=== PATIENT | male | born 1965 | race Caucasian/White ===

== ENCOUNTER 2018-02-19 14:25 | Inpatient (IN) | payer OTHER ==
[~2018-02-19] VITALS: Ht 166.4 cm; Wt 55.1 kg
[2018-02-19 16:15] VITALS: BP 129/73
--- NOTE | 2018-02-19 16:41 | ED GENERAL ADULT ---
History of Present Illness General Chief Complaint: Psychiatric Related Complaint Stated Complaint: PSYCH EVAL Source: patient, family Exam Limitations: no limitations Vital Signs & Intake/Output Vital Signs & Intake/Output Vital Signs Date Time Temp Pulse Resp B/P B/P Pulse O2 O2 Flow FiO2 Mean Ox Delivery Rate 06 1104 97.8 86 18 137/88 06/05 1048 97.8 86 20 137/78 92 Room Air 06/05 0950 97.0 73 20 119/77 98 Room Air 06/05 0801 99.1 56 18 127/73 06/05 0751 99.1 56 18 127/73 98 Room Air 06/05 0600 97.8 60 18 138/73 06/05 0553 97.8 60 18 138/73 99 Room Air 06/04 2215 98.9 61 20 116/72 06/04 2128 98.9 61 20 116/72 94 Room Air 06/04 1934 97.7 78 18 134/82 06/04 1933 97.7 78 18 134/82 96 Room Air 06/04 1744 97.3 82 16 132/77 06/04 1743 97.3 82 16 132/77 97 Room Air 06/04 1615 96.7 77 18 129/73 06/04 1615 96.7 77 18 129/73 95 Room Air 06/04 1512 97.1 80 18 157/87 97 Room Air ED Intake and Output 06/05 0000 06/04 1200 Intake Total 0 Output Total Balance 0 Intake, Oral 0 Patient 130 lb Weight Allergies Coded Allergies: Sulfa (Sulfonamide Antibiotics) (Intermediate, RASH 02/19/18) Triage Note: 52 YEAR OLD MALE TO ER VIA AMBULANCE ON [facility] DUE TO POSITIVE SI COMMENTS. PT STATES THAT HE CALLED THE [facility]IC[facility] AND STATED THAT HE NO LONGER WANTED TO LIVE AND THEY CALLED THE POLICE. PT CALM AND COPERATIVE AND STATES THAT HE HAS BEEN VERY DEPRESSED OVER THE PAST COUPLE OF MONTHS SINCE HE LOST HIS JOB. PT LIVES WITH HIS KING AND HER 3 SONS. PT ADMITS TO BEING A DAILY DRINKER AND LAST DRINK WAS THIS AM. (WINE) DENIES HISTORY OF WITHDRAWAL SEIZURES AND STATES THAT HE ONLY GETS SHAKEY. DENIES DRUG USE/ PT HAS NEVER BEEN ADMITTED FOR DETOX OR DEPRESSION. Triage Nurses Notes Reviewed? yes HPI: 52 yo M PMH EtOH abuse presenting with depression, SI. Patient endorses 2-3 weeks of progressive depressed mood, anhedonia, feelings of guilt and worthlessness, increased life stressors (recently lost job 2 weeks ago). Associated suicidal ideation without specific plan, "I guess I'd overdose on pills, I just want to go to sleep and never wake up." Patient called at suicide support hotline this afternoon, PD sent to patients house to transport him to the ED. Patient endorses daily heavy EtOH use since 06/2017 ("wine mostly", somtimes beer or hard liquor), no prior Hx of withdrawal seizures. ROS (+) for intermittent nausea without emesis, some tremors with cessation of EtOH use. Denies associated fevers, chills, chest pain, SOB, palpitations, emesis, diarrhea, bloody stools, urinary Sx, headache, neck pain or focal neurologic Sx. (Fernando Morejon MD) Reconcile Medications Pantoprazole Sodium 40 MG TABLET. 1 TAB PO BID GI (Reported) (Crow Escalante DO) Past History Travel History Traveled to [place] past 21 day No Medical History Any Pertinent Medical History? 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 Yes (Fernando Morejon MD) Review of Systems Review of Systems Constitutional: Reports: no symptoms. EENTM: Reports: no symptoms. Respiratory: Reports: no symptoms. Cardiovascular: Reports: no symptoms. GI: Reports: see HPI. Genitourinary: Reports: no symptoms. Musculoskeletal: Reports: no symptoms. Skin: Reports: no symptoms. Neurological/Psychological: Reports: see HPI. Hematologic/Endocrine: Reports: no symptoms. Immunologic/Allergic: Reports: no symptoms. All Other Systems: Reviewed and Negative (Fernando Morejon MD) Physical Exam Physical Exam General Appearance: well developed/nourished, no apparent distress, alert, awake Head: atraumatic Eyes: Bilateral: PERRL, EOMI. Neck: normal inspection, full range of motion, no midline tenderness Respiratory: normal breath sounds, lungs clear Cardiovascular: regular rate/rhythm, normal peripheral pulses Gastrointestinal: soft, non-tender Core Measures ACS in differential dx? No CVA/TIA Diagnosis: No Sepsis Present: No Sepsis Focused Exam Completed? No (Jean-Pierre CLARK,Fernando) Progress Differential Diagnoses I considered the following diagnoses in my evaluation of the patient: [ Psychiatric pathology, intoxication, low concern for infectious or metabolic precipitants] Plan of Care: Orders Procedure Date/time Status Regular Diet 02/20 B Active Admit to inpatient psych 02/20 1219 Active Continuous Observation Monitor 02/20 0002 Active Add-on Test (ER Only) 02/19 2002 Active Pathway - chart 02/19 172 Active CIWA 02/19 1727 Active THYROID STIMULATING HORMONE 02/19 1629 Complete LIPASE 02/19 1629 Complete HEPATIC FUNCTION PANEL 02/19 1629 Complete ETHANOL 02/19 1555 Complete CBC WITHOUT DIFFERENTIAL 02/19 1555 Complete BASIC METABOLIC PANEL 02/19 1555 Complete EKG 02/19 1555 Active ED CRISIS PSYCH CONSULT 02/19 1555 Active URINE DRUGS OF ABUSE 02/19 1523 Complete Current Medications Sig/Dinesh Start time Last Medication Dose Stop Time Status Admin Lorazepam 2 MG Q2P PRN 02/19 1730 UNVr (Ativan) Lorazepam 1 MG Q2P PRN 02/19 1730 UNVr (Ativan) Thiamine HCl 100 MG DAILY 02/19 1730 UNVr 02/19 (Vitamin B1) 1739 Laboratory Tests 02/19/18 1629: Anion Gap 19 H, Estimated GFR > 60, BUN/Creatinine Ratio 15.7, Glucose 191 H, Calcium 9.0, Total Bilirubin 0.6, Direct Bilirubin 0.3, AST 279 H, ALT 120 H, Alkaline Phosphatase 142 H, Total Protein 7.6, Albumin 4.5, Lipase 327 H, TSH 0.718, CBC w Diff NO MAN DIFF REQ, RBC 4.60 L, MCV 105.6 H, MCH 36.0 H, MCHC 34.2, RDW 14.7 H, MPV 8.1, Gran % 78.8 H, Lymphocytes % 13.2 L, Monocytes % 7.7, Eosinophils % 0.1, Basophils % 0.2, Absolute Granulocytes 5.9, Absolute Lymphocytes 1.0 L, Absolute Monocytes 0.6, Absolute Eosinophils 0, Absolute Basophils 0, Serum Alcohol 322.0 02/19/18 1556: TSH Cancelled 02/19/18 1527: Urine Opiates Screen < 100, Methadone Screen < 40, Barbiturate Screen < 60, Ur Phencyclidine Scrn < 6.00, Amphetamines Screen 240, U Benzodiazepines Scrn < 85, Urine Cocaine Screen < 50, Urine Cannabis Screen < 5.00 Physician MDM: 52 yo M PMH EtOH abuse presenting with depression, SI. VSS, exam as above. DDx: Psychiatric pathology, intoxication, low concern for infectious or metabolic precipitants. CBC reflective of chronic EtOH use with low platelets and high MCV. BMp unremarkable. EtOH 322. Thiamine/folate ordered. Medically cleared for ED crisis evaluation. Plan to monitor for sobriety overnight on CIWA scale with PRN PO ativan, re-evaluate tomorrow, probable admission for depression with SI. Initial ED EKG: NSR (Jean-Pierre CLARK,Fernando) Hand-Off Endorsed To: Crow Escalante DO Endorsed Time: 0700 Pending: consult (Dmitriy CLARK,Mario Mckeon) Comments: Attending addendum@12:19 PM on 02/20/[address] Escalante: I assumed care from Dr. Mullins at the time of shift change while awaiting crisis evaluation. The patient had a CIWA score of 8 so I administered lorazepam 2 mg orally which improved his CIWA to 4. Crisis team performed their evaluation and recommended admission to the psychiatric service. Patient was hospitalized in stable condition to psych. (Crow Escalante DO) Departure Departure Disposition: STILL A PATIENT Condition: Stable Clinical Impression Primary Impression: Suicidal ideation Secondary Impressions: Alcohol intoxication Referrals: Zeeshan CLARK,Thierno Vallejo (PCP/Family) Departure Forms: Customer Survey General Discharge Information (Fernando Morejon MD) Resident Co-Sign Statement Statement: ED Attending supervision documentation- [X] I saw and evaluated the patient. I have also reviewed all the pertinent lab results and diagnostic results. I agree with the findings and the plan of care as documented in the Resident's documentation. [X] I have reviewed the ED Record and agree with the Resident's documentation. [] Additions or exceptions (if any) to the Resident's note and plan are summarized below: [] (Dmitriy CLARK,Mario Mckeon) Departure Time of Disposition: 1220 Psych Admission Note Psychiatric Admission: x I have seen and evaluated RENETTA AMBROSIO. I have also reviewed all the pertinent lab results and diagnostic results. RENETTA AMBROSIO will be admitted to our inpatient Psychiatric unit for treatment and care. (Crow Escalante DO) Critical Care Note Critical Care Note Critical Care Time: non-applicable (Jean-Pierre CLARK,Fernando)
[2018-02-19 16:42] LABS: ABSOLUTE BASOPHIL COUNT 0 /CUMM (0.0-0.2); ABSOLUTE EOSINOPHIL COUNT 0 /CUMM (0.0-0.7); ABSOLUTE GRANULOCYTE CT 5.9 /CUMM (1.4-6.5); ABSOLUTE MONOCYTE COUNT 0.6 /CUMM (0.10-0.60); BASOPHIL % 0.2 % (0.0-2.0); EOSINOPHIL % 0.1 % (0-5); GRANULOCYTE % 78.8 % (42.2-75.2); HEMATOCRIT 48.5 % (42-52); MEAN CORPUSCULAR HGB CONC 34.2 G/DL (33.0-37.0); MEAN CORPUSCULAR VOLUME 105.6 FL (80.0-94.0); MEAN PLATELET VOLUME 8.1 FL (7.4-10.4); PLATELET COUNT 110 /CUMM (130-400); RBC DISTRIBUTION WIDTH 14.7 % (11.5-14.5); WHITE BLOOD CELL COUNT 7.5 /CUMM (4.8-10.8)
[2018-02-19 17:44] VITALS: BP 132/77
[2018-02-19 19:34] VITALS: BP 134/82
[2018-02-19 22:15] VITALS: BP 116/72
[2018-02-20] VITALS (12 sets, daily range): BP systolic 126–144; BP diastolic 71–88
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
[2018-02-20] MEDS ORDERED: PANTOPRAZOLE SO40 M1 PO (12:01)
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
--- NOTE | 2018-02-20 22:49 | History & Physical ---
General Information and HPI MD Statement: I have seen and personally examined RENETTA AMBROSIO and documented this H&P. The patient is a 52 year old M who presented with a patient stated chief complaint of [depression, SI]. Source of Information: patient Exam Limitations: no limitations History of Present Illness: 52 yo M smoker, with h/o GERD, anxiety, depression, alcohol dependence, is admitted to Inpatient Psychiatry for worsening depression and suicidal ideation. Please refer to Psych H and P for full details. Patient also binges on alcohol 1L of wine or vodka daily, with no prior h/o withdrawal seizures or DT's. He is being admitted for detox as well. 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 He was evaluated by [facility]ical Equipment [facility], had an echo that was normal. He also underwent a treadmill stress test post discharge which was normal. He is to follow Cardiology every year. 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 He denies h/o CAD, Afib or valvular disorders. He currently denies chest pain, palpitations or dyspnea. He does experience these symptoms during a panic attack. He reports nausea but no vomiting, abdominal pain. Reports nonbloody diarrhea for past 2 days, denies recent antibiotic use. No urinary symptoms, fever or chills. Last EGD/ colonoscopy (Oct 2017): shows no significant esophageal inflammation, focal esophageal diverticulum and normal colonoscopy. Allergies/Medications Allergies: Coded Allergies: Sulfa (Sulfonamide Antibiotics) (Intermediate, RASH 02/19/18) Home Med list Pantoprazole Sodium 40 MG TABLET. 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 Home Who Do You Live With? self Services at Home: None Primary Language: Faroese Smoking Status: Current Everyday Smoker ETOH Use: alcoholic Illicit Drug Use: denies illicit drug use Functional Ability ADLs Independent: dressing, toileting, bathing. Ambulation: independent IADLs Independent: telephone, transportation. Review of Systems Review of Systems Constitutional: Denies: chills, fever, weakness. EENTM: Reports: no symptoms. Cardiovascular: Denies: chest pain, palpitations, syncope. Respiratory: Denies: cough, orthopnea, short of breath, wheezing. GI: Reports: diarrhea, nausea. Denies: abdominal pain, vomiting. Genitourinary: Reports: no symptoms. Musculoskeletal: Reports: no symptoms. Neurological/Psychological: Reports: see HPI. All Other Systems: Reviewed and Negative Date of Last Colonoscopy: 10/30/17 Exam & Diagnostic Data Last 24 Hrs of Vital Signs/I&O Vital Signs Date Time Temp Pulse Resp B/P B/P Pulse O2 O2 Flow FiO2 Mean Ox Delivery Rate 02/20 2220 97.6 72 142/81 06/05 202 97.7 73 142/86 / 2019 97.7 73 142/86 06/05 1817 77 131/71 06/05 1610 71 126/78 06/05 1603 71 126/78 06/05 1553 71 126/78 06/05 1325 98.8 71 144/75 06/05 1324 98.8 71 144/75 06/05 1227 97.5 82 20 139/93 98 Room Air 06/05 1104 97.8 86 18 137/88 06/05 1048 97.8 86 20 137/78 92 Room Air 06/05 0950 97.0 73 20 119/77 98 Room Air 06/05 0801 99.1 56 18 127/73 06/05 0751 99.1 56 18 127/73 98 Room Air 06/05 0600 97.8 60 18 138/73 06/05 0553 97.8 60 18 138/73 99 Room Air Intake & Output 06/06 0800 06/06 0000 06/05 1600 Intake Total Output Total Balance Patient 121 lb Weight Physical Exam General Appearance Alert, Oriented X3, Cooperative, No Acute Distress, Tremulous Skin No Rashes, No Breakdown, No Significant Lesion HEENT Atraumatic, PERRLA, EOMI Neck Supple Cardiovascular Regular Rate, Normal S1, Normal S2, No Murmurs Lungs Clear to Auscultation, Normal Air Movement Abdomen Normal Bowel Sounds, Soft, No Tenderness Neurological Exam Findings: Normal Gait, Normal Speech, Strength at 5/5 X4 Ext, Normal Tone, Sensation Intact, Cranial Nerves 3-12 NL Cranial Nerves II through XII: Intact Extremities No Edema, Normal Pulses, No Tenderness/Swelling Last 24 Hrs of Labs/Kg: Laboratory Tests 02/19/18 1629: Anion Gap 19 H, Estimated GFR > 60, BUN/Creatinine Ratio 15.7, Glucose 191 H, Calcium 9.0, Total Bilirubin 0.6, Direct Bilirubin 0.3, AST 279 H, ALT 120 H, Alkaline Phosphatase 142 H, Total Protein 7.6, Albumin 4.5, Lipase 327 H, TSH 0.718, CBC w Diff NO MAN DIFF REQ, RBC 4.60 L, MCV 105.6 H, MCH 36.0 H, MCHC 34.2, RDW 14.7 H, MPV 8.1, Gran % 78.8 H, Lymphocytes % 13.2 L, Monocytes % 7.7, Eosinophils % 0.1, Basophils % 0.2, Absolute Granulocytes 5.9, Absolute Lymphocytes 1.0 L, Absolute Monocytes 0.6, Absolute Eosinophils 0, Absolute Basophils 0, Hepatitis A IgM Ab Pending, Hep Bs Antigen Pending, Hep B Core IgM Ab Conf Pending, Hepatitis C Antibody Pending, Serum Alcohol 322.0 02/19/18 1556: TSH Cancelled 02/19/18 1527: Urine Opiates Screen < 100, Methadone Screen < 40, Barbiturate Screen < 60, Ur Phencyclidine Scrn < 6.00, Amphetamines Screen 240, U Benzodiazepines Scrn < 85, Urine Cocaine Screen < 50, Urine Cannabis Screen < 5.00 Diagnostic Data EKG Results Initial ER EKG (02/19): sinus rhythm, poor R wave progression, no acute changes. Repeat EKG (02/20) reported as Afib, although there is baseline artifact. Repeat EKG (02/20): sinus rhythm with PACs or sinus arrhythmia. CXR Results -- Assessment/Plan Assessment: 52 yo M smoker, with h/o GERD, anxiety, depression, alcohol dependence, previous Type 2 AK in the setting of pneumonia, is admitted to Inpatient Psychiatry for worsening depression, SI and alcohol detox. - Plan to continue management of depression/ alcohol detox per Psych team. - GERD - continue protonix 40 mg BID - Diarrhea - if persistent over 3 days, will check stool studies - Transaminitis related to alcohol use. AST:ALT ratio is suggestive of alcohol induced liver disease. Will check hepatitis panel, tylenol levels and obtain RUQ ultrasound in AM. - Thrombocytopenia and macrocytosis related to marrow toxicity. Check PT/INR, peripheral smear, TSH, B12 and folic acid. - Hyperglycemia, not a known diabetic. Will check HbA1c and lipid panel. - Smoking cessation counseling, nicotine patch. DVT ppx - low risk, early ambulation. As Ranked By This Provider Problem List: 1. Suicidal ideation 2. Alcohol intoxication Miscellaneous Miscellaneous Documentation Attending Case Discussed With: Radha Mars MD Primary Care Physician: Zeeshan CLARK,Thierno Vallejo Patient sees these Specialists -- Level of Patient Care: YONY Camargo Attending Review Statement Attending Statement Attending MD Statement: examined this patient, discuss w/resident/PA/SLITTER PROCESSED FILM
--- NOTE | 2018-02-20 23:41 | Admission Certification ---
Admission Certification Certification Statement - As attending physician, I certify that at the time of - admission, based on clinical presentation, severity of - symptoms, need for further diagnostic testing and - therapeutic interventions, and risk of adverse outcomes - without in-hospital treatment, in my clinical assessment, - this patient requires an acute hospital stay for a minimum - of two nights or longer. I have also considered psychsocial - factors such as support system, advanced age, financial - issues, cognitive issues, and failed out-patient treatments, - past re-admission history, safety of patient, and lack of - compliance as applicable. Specific rationale supporting this admission is: Alcohol withdrawal, depression and suicidal ideation.
[2018-02-21] VITALS (10 sets, daily range): BP systolic 114–149; BP diastolic 56–91
[2018-02-21 06:48] LABS: PT 10.7 SEC (9.4-12.5)
--- NOTE | 2018-02-21 13:09 | CPS PROVIDER INIT ASMT PSYCH ---
Psychiatric Admission Die Maker's Note Reviewed: Yes Patient Seen and Examined: Yes Identifying Information: Patient is a 52-year-old white male Chief Complaint: Patient reported that he called the suicide hotline while he was talking with somebody on the hotline and the police showed up at the house. Reaction to Hospitalization: The patient was admitted voluntarily. History of Present Illness Onset of Illness: The patient reported that about 3 or 4 weeks ago he intended to get help for his drinking and went to [facility] emergency department in [place] and that he was told that they do not do detoxification there and was sent home from there. He resumed drinking heavily and he really presented to our emergency room after he called the suicide hotline talking about suicide. Circumstances Leading to Admission: Thoughts of suicide and calling the suicide hotline which ended up calling 911 to bring him to the hospital Problem(s) Justifying Need for Admission: Thoughts of suicide and severe depression and severe drinking Past Psychiatric History Past Diagnosis(es)- if any: This is his first inpatient psychiatric admission. He has no known psychiatric diagnoses but he did struggle with alcohol use disorder Past Precipitating Factors- if any: Drinking - Include inpatient and outpatient treatment Treatment History: The patient had no formal psychiatric treatment He reported that he did attempt to seek treatment for his alcoholism and detoxification about 3 or [address] [facility] but he was sent home from the emergency room History of Suicide Attempts or Gestures The patient denied any history of actual suicide attempts in the past. Substance Abuse History: Alcohol use disorder Allergies: Coded Allergies: Sulfa (Sulfonamide Antibiotics) (Intermediate, RASH 02/19/18) Home Med List: The patient was not on psychotropic medications at home. - Include any medical condition(s) that may - impact the patient's recovery/remission Past Medical History: The patient denied any major medical issues. Past History Medical History Neurological: NONE EENT: NONE Cardiovascular: NONE Respiratory: NONE Gastrointestinal: GERD Hepatic: NONE Renal: NONE Musculoskeletal: NONE Psychiatric: alcohol dependence, anxiety, depression Endocrine: NONE Blood Disorders: NONE Cancer(s): NONE CLIENT TECHNICAL SPECIALIST/Reproductive: NONE Isolation History: Standard Surgical History Surgical History: not explored Psychiatric Family/Social Hx Family History Psychiatric Illness: Patient does not believe there is psychiatric illness in the family. Substance Use: Please see the biopsychosocial assessment by [facility] Suicides: Please see the biopsychosocial assessment by CERTIFIED TEACHER ASSISTANT Other Family History: Please see the biopsychosocial assessment by CERTIFIED TEACHER ASSISTANT Social History Living Situation: Please see the biopsychosocial assessment by CERTIFIED TEACHER ASSISTANT Significant Relationships (family/friends): Please see the biopsychosocial assessment by CERTIFIED TEACHER ASSISTANT Education: Please see the biopsychosocial assessment by CERTIFIED TEACHER ASSISTANT Vocation/Occupation: Please see the biopsychosocial assessment by CERTIFIED TEACHER ASSISTANT Legal: Please see the biopsychosocial assessment by CERTIFIED TEACHER ASSISTANT Other Social History: Please see the biopsychosocial assessment by CERTIFIED TEACHER ASSISTANT Healthly Behaviors Screening Tobacco Screening Tobacco Use from ED Docu: Current Daily Use Daily Tobacco Use Amount/Type: => 5 Cigarettes daily - If tobacco counseling indicated - the following topics are required. - #1 Recognizing dangerous situations. - #2 Coping Skills. - #3 Basic information about quitting. Status of Tobacco Cessation Counseling: #1, #2 AND #3 Completed Cessation Med Status Nicotine Patch Ordered Alcohol Screening - ETOH screen POS if BAL >=80 or Audit-C>= M4/F3 Audit-C Score from Diag Assess: 12 Blood Alcohol Level: Laboratory Tests 02/19 1629 Toxicology Serum Alcohol (<10 MG/DL) 322.0 Alcohol Use Screening Results: Pos per Audit C &/or BAL - If ETOH counseling indicated - the following topics are required. - #1 Express concern about the patient's - drinking at unhealthy levels, include informing - of national norms for moderate drinking: - men <= 14 drinks/week, max 4 drinks/occasion - women <= 7 drinks/week, max 3 drinks/occasion - #2 Providing feedback, including linking alcohol to - negative physical effects (liver injury, hypertension) - negative emotional effects (relationship problems and - depression) - negative occupational consequences (reduced work - performance) - #3 Advising the patient to abstain from alcohol or - to drink below national norms for moderate drinking - (as listed above). Status of ETOH Use Counseling: #1, #2 AND #3 Completed. Metabolic Screening - Screen if on a Neuroleptic Medication - Metabolic screening should include: - Blood Pressure, BMI, Glucose or Hgb A1c, & a - Lipid profile from within the past 365 days. Metabolic Screening ([X]) Not Applicable, patient not on a neuroleptic. Exam and Plan Mental Status Examination Ambulation Status: The patient had steady gait. Appearance: The patient showed a scar over the bridge of his nose. Attitude towards examiner: The patient was calm and cooperative. Psychomotor activity: The patient showed fine tremors. Behavior: There were no abnormal or bizarre behaviors. Quality of speech: Patient was talkative but not pressured. Affect: Anxious. Mood: He did acknowledge that he has been feeling down and depressed as well as feeling anxious and has multiple worries. Suicidal Ideation: He denied thoughts of suicide today. Homicidal Ideation: He denied thoughts of violence or homicide today. Hallucinations: He denies hallucinations. He said last night he had bizarre dreams. And he also at one point felt as if his cat was walking on his bed in the hospital. Otherwise there was no tactile hallucinations or visual hallucinations Paranoid/Delusional Material: Patient denies feeling paranoid, there were no delusions during the interview. Difficulties with thought organization: The patient did have some difficulties with attention and concentration, however , in generalshe did not seem to have any difficulty with information processing this morning. Insight: Seems to have partial insight. Judgment: His judgment is directly tied to his sobriety. Orientation: He was alert and oriented to place and person and partially to time today. Cognition: Minor difficulties with attention and concentration but overall no significant difficulties in information processing Memory Function: There was no gross impairment in his memory. Estimate of intellectual functioning: Average Assets/Strengths Patient Identified Assets/Strengths: The patient is likable, honest, and seems to be motivated. He also has a very supportive fianc. Impression/Plan Impression and Plan: 52-year-old white male who presented to the emergency room after calling the suicide hotline. The suicide hotline seem to have called 911 and the police showed up at his house. He was intoxicated at the time of his arrival to the emergency room. - Include all active medical diagnosis that require tx DSM 5 Diagnosis(es): Unspecified depressive disorder Rule out alcohol-induced mood disorder with onset during intoxication Alcohol use disorder Alcohol withdrawal Generalized anxiety disorder - Initial Tx Plan for Active Psych & Medical Conditions Treatment Plan: Inpatient psychiatric care with safety checks every 15 minutes Detoxification from alcohol using the CIWA protocol, as needed doses of Ativan Ativan 1 mg times once now Ativan 2 mg at bedtime tonight Reevaluate tomorrow Biopsychosocial assessment by social work Collateral information and aftercare planning in Nursing assessments, vital signs, patient education and Group therapy and milieu therapy and activity therapy Psychiatrist to evaluate patient daily for mental state's as well as for medication monitoring - Factors that would help patient function - in a less restrictive setting. Factors: The patient will be discharged home once he is safely detoxified from alcohol and if he continues to deny thoughts of suicide for at least 2 consecutive days
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
--- NOTE | 2018-02-21 21:25 | ULTRASOUND REPORT ---
EXAMINATION: US ABDOMEN COMPLETE CLINICAL INFORMATION: EtOH abuse. Transaminitis.. COMPARISON: None TECHNIQUE: Real-time imaging of the abdominal viscera. Color Doppler exam used. FINDINGS: PANCREAS: Normal. ABDOMINAL AORTA: The proximal segment is normal in caliber. INFERIOR VENA CAVA: Visualized portions are normal. LIVER: There is diffuse increased echogenicity of the liver parenchyma consistent with fatty change. There is no focal liver lesion. There is no intrahepatic bile duct dilatation. GALLBLADDER: The gallbladder is contracted. No pericholecystic fluid. No gallstone. COMMON BILE DUCT: Normal in caliber measuring 0.4 cm in diameter. RIGHT KIDNEY: Normal. No hydronephrosis. No renal calculi or focal parenchymal lesions. The kidney measures 9.8 cm in maximum dimension. LEFT KIDNEY: Normal. No hydronephrosis. No renal calculi or focal parenchymal lesions. The kidney measures 10.5 cm in maximum dimension. SPLEEN: Normal. The spleen measures 10.1 cm in maximum dimension. FREE FLUID: None. IMPRESSION: 1. Diffuse fatty change of liver. No focal liver lesion or bile duct dilatation. 2. Gallbladder is contracted. No gallstone or pericholecystic fluid.
[2018-02-22] VITALS (7 sets, daily range): BP systolic 117–140; BP diastolic 67–79
--- NOTE | 2018-02-22 08:02 | CP SOUTH PROGRESS NOTE PSYCH ---
Psych (Inpt) Progress Note Progress Note Nursing staff reported that the patient was difficult to arouse this morning most likely due to the 2 mg of Ativan that I ordered last night (because the patient was having tremulousness yesterday, nightmares/vivid dreams the night before and having what sounded like a hallucinatory experience thinking and feeling as if his cat was walking on his bed covers in the hospital vital Signs Date Time Temp Pulse B/P 02/22 917 97.3 60 125/67 02/22 917 97.3 60 125/67 02/21 1957 97.1 70 149/89 02/21 1954 97.1 70 149/ Mental Status Examination The patient was alert around 10:55 AM when I interviewed him. had steady gait. The patient was a bit too sedated this morning and difficult to get out of bed because of last night's Ativan. The patient was calm and cooperative. The patient still showed fine tremors. There were no abnormal or bizarre behaviors. Patient reported that he slept very well last night and did not have any vivid dreams and no hallucinatory experiences. He reports that his mood is depressed, he felt that yesterday may have been a better day for him. feeling anxious and has multiple worries. He denied thoughts of suicide & denied thoughts of violence or homicide today. He denies hallucinations. no tactile hallucinations or visual hallucinations. Patient denies feeling paranoid, there were no delusions during the interview. The patient did have some difficulties with attention and concentration, however , in generalhe did not seem to have any difficulty with information processing this morning. He was alert and oriented to place and person and partially to time today. There was no gross impairment in his memory. Assessment: 52-year-old white male who presented to the emergency room after calling the suicide hotline. The suicide hotline seem to have called 911 and the police showed up at his house. He was intoxicated at the time of his arrival to the emergency room. Diagnosis(es): Unspecified depressive disorder Rule out alcohol-induced mood disorder with onset during intoxication Alcohol use disorder Alcohol withdrawal Generalized anxiety disorder Treatment Plan: Reduce bedtime Ativan to 1.5 mg Detoxification from alcohol using the CIWA protocol, as needed doses of Ativan calling the suicide hotline. The suicide hotline seem to have called 911 and the police showed up at his house. He was intoxicated at the time of his arrival to the emergency room. - Include all active medical diagnosis that require tx DSM 5 Diagnosis(es): Unspecified depressive disorder Rule out alcohol-induced mood disorder with onset during intoxication Alcohol use disorder Alcohol withdrawal Generalized anxiety disorder - Initial Tx Plan for Active Psych & Medical Conditions Treatment Plan: Inpatient psychiatric care with safety checks every 15 minutes Detoxification from alcohol using the CIWA protocol, as needed doses of Ativan Ativan 1 mg times once now Ativan 2 mg at bedtime tonight Reevaluate tomorrow Biopsychosocial assessment by social work Collateral information and aftercare planning in Nursing assessments, vital signs, patient education and Group therapy and milieu therapy and activity therapy Psychiatrist to evaluate patient daily for mental state's as well as for medication monitoring
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
--- NOTE | 2018-02-23 07:49 | CP SOUTH PROGRESS NOTE PSYCH ---
Psych (Inpt) Progress Note Progress Note Treatment team (JOSEY, RN, OTR/L & Psychiatrist) discussed Pt.'s progress, treatment plan, and aftercare plans. Vital Signs: Blood pressure 129/79 mmHg, pulse 72 bpm, and temperature 97.5F Mental Status Examination: The patient was alert and oriented to time, place, and person. He was calm & cooperative. There were no abnormal or bizarre behaviors. Pt. said he had minor difficulty falling asleep last night and had to ask for as needed medication. No hallucinatory experiences, he reported that his mood is depressed, he felt that yesterday may have been a better day for him. He has multiple worries/ generalized and anticipatory anxiety. He denied thoughts of suicide & denied thoughts of violence or homicide today. He denies hallucinations. Pt. denied feeling paranoid & there were no delusions during the interview. Pt. has some difficulties with attention and concentration. However--in generalhe did not seem to have any difficulty with information processing. There was no gross impairment in his memory. Assessment Update: Wade is a 52-year-old white male who presented to the emergency room after calling the suicide hotline. The suicide hotline seem to have called 911 and the police showed up at his house. He was intoxicated at the time of his arrival to the emergency room. Diagnoses: Unspecified depressive disorder Rule out alcohol-induced mood disorder with onset during intoxication Alcohol use disorder Alcohol withdrawal Generalized anxiety disorder Treatment Plan: Reduce bedtime Ativan to 1 mg tonight Increase Gabapentin to 600 mg Q0800 & 1400 and 900 mg at bedtime Increase sertraline to 100 mg daily Gabapentin 600 MG Q6-PRN PRN Lorazepam 0.5 MG ONE ONE Lorazepam 1 MG ONCE ONE Lorazepam 2 MG Q4 HRS NEEDED PRN Lorazepam 1 MG Q4 HRS NEEDED PRN Omeprazole 40 MG BID
[2018-02-23 07:53] VITALS: BP 129/79
[2018-02-23 08:02] VITALS: BP 129/79
[2018-02-23 08:05] VITALS: BP 129/79
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
--- NOTE | 2018-02-23 09:37 | SOCIAL WORKER PROG NOTE PSYCH ---
Social Work Progress Note Progress Note TC - [facility] #[phone], [phone] - spoke with Moises/Heron - she stated she has the clinical faxed on 02/22/18 - she will review and call back for screening. She stated may not call back today, as there are others who are ahead of patient for a bed. Try calling again - Monday.
[2018-02-23 12:22] VITALS: BP 134/72
--- NOTE | 2018-02-23 15:52 | SOCIAL WORKER PROG NOTE PSYCH ---
Social Work Progress Note Progress Note Determination Status: PENDED The services requested require additional review. You will be contacted regarding the status of this request if further information is needed. An authorization decision will be made within the required timeframes and details of that decision may be found under the member's authorization history. Member Name Member ID Member Subscriber Name Subscriber ID RENETTA Langford DAILY [id number] 1965 RENETTA Langford DAILY [id number] Pended Authorization # Client Authorization # Type of Request [id number] CONCURRENT Date of Admission/ Start of Services Requested From Submission Date 02/20/2018 02/23/2018 02/23/2018 Level of Service Type of Service Level of Care Type of Care INPATIENT/HLOC [facility]patient [facility] - Inpatient Hospital Reason Code P76 Provider Name & Address Provider ID Provider Alternate ID NPI # for Authorization ISHMAEL WALL [id number] [address] [place] [id number]
[2018-02-23 16:39] VITALS: BP 137/73
[2018-02-23 19:46] VITALS: BP 127/74
[2018-02-24 07:54] VITALS: BP 106/67
[2018-02-24 12:06] VITALS: BP 118/72
--- NOTE | 2018-02-24 12:31 | CP SOUTH PROGRESS NOTE PSYCH ---
Psych (Inpt) Progress Note Progress Note Include the following elements, when applicable: Involvement in the active treatment of the patient with behavioral observations of the patient and the patient's response to the treatment. Review of the ongoing treatment process in the context of the treatment plan. Indication of how multi-disciplinary staff members are carrying out the treatment plan. Plans for future interventions and recommendations for revision of the treatment plan. Liaison with other physicians/providers. Progress Note: pt notes that he is tired today after not sleeping well. Notes mom and fiance may visit and they are very supportive. Denies SI or HI. Current Medications Sig/Dinesh Start time Last Medication Dose Route Stop Time Status Admin Folic Acid 1 MG DAILY 02/21 900 AC 02/24 PO 0850 Gabapentin 900 MG AT BEDTIME 02/23 2100 AC 02/23 PO 2158 Gabapentin 600 MG 0800,1400 02/23 1400 AC 02/24 PO 0850 Lorazepam 0.5 MG ONE ONE 02/24 2100 AC PO 02/24 2101 Lorazepam 1 MG ONCE ONE 02/23 2100 DC 02/23 PO 02/23 2101 2158 Lorazepam 0.5 MG Q4 HRS NEEDED PRN 02/23 1200 AC 02/23 PO 03/02 1159 1458 Melatonin 3 MG AT BEDTIME 02/24 2100 AC PO Melatonin 10 MG ONCE ONE 02/23 2340 DC 02/24 PO 02/23 2341 0003 Multivitamins 1 TAB DAILY 02/21 900 AC 02/24 PO 0850 Nicotine 21 MG DAILY 02/21 900 AC 02/24 TOP 0850 Omeprazole 40 MG BID 02/20 2100 AC 02/24 PO 0850 Sertraline HCl 100 MG DAILY 02/24 900 AC 02/24 PO 0851 Thiamine HCl 100 MG DAILY 02/19 1730 AC 02/24 PO 0851 Trazodone HCl 50 MG AT BEDTIME NEED.. 02/24 1230 AC PO Vital Signs Date Time Temp Pulse Resp B/P B/P Pulse O2 O2 Flow FiO2 Mean Ox Delivery Rate 02/24 1206 82 118/72 02/24 0754 96.5 68 106/67 02/23 1946 98.7 67 127/74 08 1639 67 137/73 MSE General appearance: good hygiene and grooming; Attitude: cooperative; Eye contact: appropriate; Movement: no psychomotor agitation or slowing; Speech: nl fluency, nl rate/rhythm, nl volume, nl prosody; Mood: "OK" Affect: irritable, flat, appropriate, constricted, non-labile, congruent; Thought process: linear and goal-directed; Thought content: denied SI or HI, no paranoid ideation; Perception: denied hallucinations- auditory, visual, does not appear to be responding to internal stimuli; I/J: limited A/P: Pt with depression and AUD now with improved mood though very poor sleep -Continue current medication regimen except added trazodone and melatonin -Encourage integration into the milieu
[2018-02-24 16:13] VITALS: BP 131/72
[2018-02-24 20:25] VITALS: BP 121/72
[2018-02-25 08:07] VITALS: BP 116/57
[2018-02-25 12:06] VITALS: BP 102/65
--- NOTE | 2018-02-25 12:28 | CP SOUTH PROGRESS NOTE PSYCH ---
Psych (Inpt) Progress Note Progress Note Include the following elements, when applicable: Involvement in the active treatment of the patient with behavioral observations of the patient and the patient's response to the treatment. Review of the ongoing treatment process in the context of the treatment plan. Indication of how multi-disciplinary staff members are carrying out the treatment plan. Plans for future interventions and recommendations for revision of the treatment plan. Liaison with other physicians/providers. Progress Note: Pt notess that he has some difficulty with staying asleep overnight. He is very "apprehensive" around dc planning because he is not sure he would be immediately accepted into a rehab. He also noted that he may not want to go to rehab as he would like to do just AA. Advised against this as pt needs more structure and support. Denies SI or HI. Current Medications Sig/Dinesh Start time Last Medication Dose Route Stop Time Status Admin Folic Acid 1 MG DAILY 02/21 900 AC 02/25 PO 08 Gabapentin 900 MG AT BEDTIME 02/23 2100 AC 02/24 PO 2257 Gabapentin 600 MG 0800,1400 02/23 1400 AC 02/25 PO 0806 Lorazepam 0.5 MG ONE ONE 02/24 2100 DC 02/24 PO 02/24 2101 2257 Lorazepam 0.5 MG Q4 HRS NEEDED PRN 02/23 1200 AC 02/23 PO 03/02 1159 1458 Melatonin 3 MG AT BEDTIME 02/24 2100 AC 02/24 PO 2337 Multivitamins 1 TAB DAILY 02/21 900 AC 02/25 PO 0806 Nicotine 21 MG DAILY 02/21 900 AC 02/24 TOP 0850 Omeprazole 40 MG BID 02/20 2100 AC 02/25 PO 08 Sertraline HCl 100 MG DAILY 02/24 900 AC 02/25 PO 0806 Thiamine HCl 100 MG DAILY 02/19 1730 AC 02/25 PO 0806 Trazodone HCl 50 MG AT BEDTIME NEED.. 02/24 1230 AC 02/25 PO 0017 MSE General appearance: good hygiene and grooming; Attitude: cooperative; Eye contact: appropriate; Movement: no psychomotor agitation or slowing; Speech: nl fluency, nl rate/rhythm, nl volume, nl prosody; Mood: "apprehensive" Affect: less irritable, flat, appropriate, constricted, non-labile, congruent; Thought process: linear and goal-directed; Thought content: denied SI or HI, no paranoid ideation; Perception: denied hallucinations- auditory, visual, does not appear to be responding to internal stimuli; I/J: limited A/P: Pt with depression and AUD now with improved mood though very poor sleep -Continue current medication regimen except increase trazodone -Encourage integration into the milieu
[2018-02-25 15:37] VITALS: BP 121/70
[2018-02-25 19:47] VITALS: BP 122/78
[2018-02-26 07:39] VITALS: BP 96/51
--- NOTE | 2018-02-26 08:26 | CP SOUTH PROGRESS NOTE PSYCH ---
Psych (Inpt) Progress Note Progress Note I reviewed Dr. Friedman's notes for the weekend of February 24 and 2017. Treatment team (AERONAUTICAL PROJECT ENGINEER, RN, OTR/L & Therapy staff, Psychiatrist) discussed the Pt. 's progress, treatment plan, and aftercare plans. Vital Signs: Date Time Temp Pulse B/P 02/26 0739 96.9 54 96/51 02/25 1947 97.6 59 122/78 Mental Status Examination: The patient was alert and oriented to time, place, and person. He was calm & cooperative. There were no abnormal or bizarre behaviors. Pt. said he had difficulty falling asleep last 3 nights. No hallucinatory experiences, he reported that his mood is depressed but improving /better than what it was. He reported feeling less anxious, he denied thoughts of suicide & denied thoughts of violence or homicide today. He denies hallucinations, denied feeling paranoid & there were no delusions during the interview. Patient seems to have significant circumstantiality and some tangentiality but all in all coherent. Pt. has some difficulties with attention and concentration. However--in general he did not seem to have any difficulty with information processing. There was no gross impairment in his memory. Assessment Update: Wade is a 52-year-old white male who presented to the emergency room after calling the suicide hotline. The suicide hotline seem to have called 911 and the police showed up at his house. He was intoxicated at the time of his arrival to the emergency room. The patient has shown significant improvement since his admission and is interested in going to a rehab but he reported that if the weight is going to be too long and he prefers not to go to a sober house but to home and do intensive outpatient program. He has been denying thoughts of suicide for the past several days Diagnoses: Unspecified depressive disorder Rule out alcohol-induced mood disorder with onset during intoxication Alcohol use disorder Alcohol withdrawal Generalized anxiety disorder Treatment Plan: Increase melatonin to 10 mg at bedtime Increase Gabapentin to 600 mg Q0800 & 1400 and 1200 mg at bedtime sertraline 100 mg daily Continue as needed trazodone 100 mg as needed Gabapentin 600 MG Q6-PRN PRN Lorazepam 0.5 MG ONE ONE Lorazepam 1 MG ONCE ONE Lorazepam 2 MG Q4 HRS NEEDED PRN Lorazepam 1 MG Q4 HRS NEEDED PRN
[2018-02-26 12:27] VITALS: BP 143/75
[2018-02-26 15:58] VITALS: BP 129/80
--- NOTE | 2018-02-26 17:33 | SOCIAL WORKER PROG NOTE PSYCH ---
Social Work Progress Note Progress Note Wade reported that he has not been getting much sleep thoughout the weekend. Attributes his sleeplessness to racing thoughts. Encouraged him to get thoughts out by journaling or writing lists. We also talked about him doing some reading prior to bed. He has been spending time reading out of the AA Big Book. He spent time visiting with friends and family over the weekend. He reports that he got himself a sponsor and he is going to work on getting more involved with AA. He shared that his fiance Jenny went to [place] with some friends for a few days. He continues to talk about how hard she works and it sounds like he misses spending time with her. I asked if he had given any thought to going [facility] while waiting for a rehab bed? He said he is really thinking it would be best for him to return home and go to [facility] and and see how things go. He wants to give that a try and remain on the [facility] waiting list. I told him I would discuss his plan with the team and then we will determine a d/c date.
[2018-02-26 20:02] VITALS: BP 140/73
[2018-02-27 07:48] VITALS: BP 94/60
--- NOTE | 2018-02-27 08:16 | SOCIAL WORKER PROG NOTE PSYCH ---
Social Work Progress Note Progress Note Returned a call from Ariadna at [facility]. Wade has been approved for a bed and there is one available today. Ariadna would like to know if he is going to take the bed by 3pm today. Dr. Anderson and I met with Wade together this morning. I told him about the bed at [facility]. He responded by saying "let's do it." He was happy to take the bed, stating he only wanted to go home because he didn't want to wait 2-3 weeks to go to rehab. He is feeling less depressed and more positive about things. Talked about the benefits of making the choice to go to rehab vs. going home. He will call his fiance Jenny to let her know. I told him I would be scheduling door to door transportation from [facility]. Called Ariadna at [facility] and let her know Wade was accepting the bed today. She did a phone screening with Wade. [facility] picked Wade up before noon. He appeared very happy with his plan.
--- NOTE | 2018-02-27 08:31 | CP SOUTH PROGRESS NOTE PSYCH ---
Psych (Inpt) Progress Note Progress Note Treatment team (JOSEY, RN, OTR/L & Therapy staff, Psychiatrist) discussed the Pt. 's progress, treatment plan, and aftercare plans. Vital Signs: Blood pressure was 94/60 mmHg, pulse was 59 bpm, temperature was 97.0F Mental Status Examination: The patient was alert and oriented to time, place, and person. He was calm & cooperative. There were no abnormal or bizarre behaviors. Pt. slept well, reported enuresis. reported that his mood is depressed but improving /better than what it was. He reported feeling less anxious, denied thoughts of suicide & denied thoughts of violence or homicide. He denies hallucinations, denied feeling paranoid & there were no delusions during the interview. circumstantial and tangential but all in all coherent. Pt. has some difficulties with attention and concentration but no difficulty with information processing. There was no gross impairment in his memory. Assessment Update: Wade is a 52-year-old white male who presented to the emergency room after calling the suicide hotline. The suicide hotline seem to have called 911 and the police showed up at his house. He was intoxicated at the time of his arrival to the emergency room. The patient has shown significant improvement since his admission and is interested in going to a rehab. He has been denying thoughts of suicide for the past several days Diagnoses: Unspecified Depressive disorder Rule out alcohol-induced mood disorder with onset during intoxication Alcohol use disorder Generalized anxiety disorder Treatment Plan: D/C to [facility] in [place], [place] Generalized anxiety disorder Treatment Plan: Increase melatonin to 10 mg at bedtime Increase Gabapentin to 600 mg Q0800 & 1400 and 1200 mg at bedtime sertraline 100 mg daily Continue as needed trazodone 100 mg as needed
[2018-02-27] MEDS ORDERED: NEURONTIN600 M1 PO (10:38)
[2018-02-27] MEDS ORDERED: NICOTINE PATCH1 EAC3 TOP (10:38)
[2018-02-27] MEDS ORDERED: MELATONIN5 M7 PO (10:40)
[2018-02-27] MEDS ORDERED: TRAZODONE HCL50 M1 PO (10:40)
[2018-02-27] MEDS ORDERED: PANTOPRAZOLE SO40 M1 PO (10:40)
[2018-02-27] MEDS ORDERED: ZOLOFT100 M1 PO (10:40)
--- NOTE | 2018-02-27 10:41 | Patient Discharge Instructions ---
Psych Discharge Inst General Discharge Information Reason for Admission: called suicide hotline Psy Discharge Primary Diag+ Unspecified Depressive DO Psy Discharge Secondary Diag+ Alcohol Use DO Summary Tests/Major Procedures Lab ALT 82 U/L H 02/21/18 0548 AST 121 U/L H 02/21/18 0548 Alkaline Phosphatase 131 U/L H 02/21/18 0548 Studies Pending at DC: none Patient Instructions Contact Information Your Psychiatrist on [facility] was Justin CLARK,[place] * If you are experiencing an emergency related to this hospitalization, please call [phone] to contact the treating psychiatrist or the psychiatrist-on- call. * To Request a copy of your medical records, please contact the Medical Records Department at [phone]. * To request results of studies pending at the time of discharge, please call [phone]. * Continue your Medications until directed to stop by your Healthcare provider. General Medication Information Please continue to take your new medications and your continued home medications , unless otherwise indicated on your discharge medication list, or unless directed by your MD or ECHO TECH to stop them. Special Instructions Diet Regular Activity Normal - Tobacco Use Treatment Offered Post DC Medications Offered: Script Given-See Med List Post DC Tobacco Treatment Plan: Refused Tobacco Tx Pgm - EtOH/Drug Use D/O Treatment Offered Post DC Medications Offered: Med Not Indicated for D/O Post DC EtOH/SubAbuse TX Plan: Other SubAbuse/Dual Pgm Metabolic Screening Not Applicable, patient not on a neuroleptic. Advance Directives Does the Patient have Medical Advance Directives No/Refused further info Does Pt have Psychiatric Advance Directives? No/Refused further info Does Patient have a Designated Surrogate Decision Maker: No Information About Psychiatric Advance Directives Provided? Yes Discharge Plan Post Hospital Treatment Plan: [facility] in [place], [place]
--- NOTE | 2018-02-27 13:02 | SOCIAL WORKER PROG NOTE PSYCH ---
Social Work Progress Note Faxed Referral(s) Referred To: [facility] Transition of Care Documents sent: Health Summary, W10 Faxed to: Ariadna Fax #: [phone] Faxed by: Melissa Reilly Date faxed: 02/27/18 Time Faxed: [phone]
--- NOTE | 2018-02-27 13:24 | DISCHARGE SUMMARY REPORT-PSYCH ---
Visit Information Visit Dates/Diagnosis' Admission Date: 02/20/18 Discharge Date: 02/27/18 Reason for Admission: called suicide hotline Psy Discharge Primary Diag: Unspecified Depressive DO Psy Discharge Secondary Diag: Alcohol Use DO Hospital Course Significant Lab Findings: Lab ALT 82 U/L H 02/21/18 0548 AST 121 U/L H 02/21/18 0548 Alkaline Phosphatase 131 U/L H 02/21/18 0548 Direct Bilirubin 0.2 mg/dL 02/21/18 0548 Total Bilirubin 1.5 mg/dL H 02/21/18 0548 Total Protein 6.3 g/dL 02/21/18 0548 Course Complications: The patient did not have any complications while he was on the inpatient psychiatric unit. Consultations: The patient had an H&P by the heading maker. Please refer to the patient's electronic health record for the details of the H&P Allergies: Coded Allergies: Sulfa (Sulfonamide Antibiotics) (Intermediate, RASH 02/19/18) Hospital Course/TX Response: 02/21/2018: Dr. Anderson's Impression & Plan: 52-year-old white male who presented to the emergency room after calling the suicide hotline. The suicide hotline seem to have called 911 and the police showed up at his house. He was intoxicated at the time of his arrival to the emergency room. Diagnoses: Unspecified depressive disorder Rule out alcohol-induced mood disorder with onset during intoxication Alcohol use disorder Alcohol withdrawal Generalized anxiety disorder Treatment Plan: Inpatient psychiatric care with safety checks every 15 minutes Detoxification from alcohol using the CIWA protocol, as needed doses of Ativan Ativan 1 mg times once now Ativan 2 mg at bedtime tonight Reevaluate tomorrow Biopsychosocial assessment by social work Collateral information and aftercare planning in Nursing assessments, vital signs, patient education, Group therapy and milieu therapy and activity therapy Psychiatrist to evaluate patient daily for mental state's as well as for medication monitoring. 02/22/2018: Reduce bedtime Ativan to 1.5 mg Detoxification from alcohol using the CIWA protocol, as needed doses of Ativan. 02/23/2018: Reduce bedtime Ativan to 1 mg tonight Increase Gabapentin to 600 mg Q0800 & 1400 and 900 mg at bedtime Increase sertraline to 100 mg daily Continue other medications unchanged 02/24/2018: The patient was seen by Dr. Friedman who was covering for the weekend. A/P: Pt with depression and AUD now with improved mood though very poor sleep -Continue current medication regimen except added trazodone and melatonin -Encourage integration into the milieu 02/25/2018: The patient was seen by Dr. Friedman who was covering for the weekend. -Continue current medication regimen except increase trazodone 02/26/2018: Increase melatonin to 10 mg at bedtime Increase Gabapentin to 600 mg Q0800 & 1400 and 1200 mg at bedtime sertraline 100 mg daily Continue as needed trazodone 100 mg as needed 2018-02-27: Mental Status Examination: The patient was alert and oriented to time, place, and person. He was calm & cooperative. There were no abnormal or bizarre behaviors. Pt. slept well, reported enuresis. reported that his mood is depressed but improving /better than what it was. He reported feeling less anxious, denied thoughts of suicide & denied thoughts of violence or homicide. He denies hallucinations, denied feeling paranoid & there were no delusions during the interview. circumstantial and tangential but all in all coherent. Pt. has some difficulties with attention and concentration but no difficulty with information processing. There was no gross impairment in his memory. Assessment Update: Wade is a 52-year-old white male who presented to the emergency room after calling the suicide hotline. The suicide hotline seem to have called 911 and the police showed up at his house. He was intoxicated at the time of his arrival to the emergency room. The patient has shown significant improvement since his admission and is interested in going to a rehab. He has been denying thoughts of suicide for the past several days Diagnoses: Unspecified Depressive disorder Rule out alcohol-induced mood disorder with onset during intoxication Alcohol use disorder Generalized anxiety disorder Treatment Plan: D/C to [facility] in [place], [place] Discharge HBIPS - Tobacco Use Treatment Offered Post DC Medications Offered: Script Given-See Med List Post DC Tobacco Treatment Plan: Refused Tobacco Tx Pgm - EtOH/Drug Use D/O Treatment Offered Post DC Medications Offered: Med Not Indicated for D/O Post DC EtOH/SubAbuse TX Plan: Other SubAbuse/Dual Pgm Metabolic Screening - Screen if on a Neuroleptic Medication - Metabolic screening should include: - Blood Pressure, BMI, Glucose or Hgb A1c, & a - Lipid profile from within the past 365 days. Metabolic Screening Not Applicable, patient not on a neuroleptic. Discharge Instructions General Discharge Information Multiple Neuroleptics: Not Applicable Discharge Diet Regular Discharge Activity Normal DC Disposition: The patient was discharged directly to rehabilitation facility Referrals Ordered Referrals Provider Referral 02/27/18 For Groups: [[facility]] [facility] admission 02/27/18 [address] [place] [address] Provider Referral 03/28/18 For Groups: Outpatient Psychiatry [facility] 03/28/18 4pm [address] [place] [address] Prescriptions Continue taking these medications: Pantoprazole Sodium (Pantoprazole Sodium) 40 MG TABLET.DR 1 Tablet ORAL TWICE DAILY Qty = 60 Comments: Last Taken:02/27/18 Time:9AM This prescription has been renewed Start taking the following new medications: Nicotine (Nicotine Patch) 21 MG/24 HOUR PATCH.TD24 21 Milligram On the skin DAILY Qty = 30 No Refills Comments: Last Taken:02/27/18 Time:9AM Sertraline HCl (Zoloft) 100 MG TABLET 100 Milligram ORAL DAILY Qty = 30 No Refills Comments: Last Taken:02/27/18 Time:9AM Trazodone HCl (Trazodone HCl) 50 MG TABLET 50 Milligram ORAL AT BEDTIME as needed for SLEEP Qty = 30 No Refills Comments: Last Taken:TO START TONIGHT 02/27/18 AT BEDTIME Time: Melatonin (Melatonin) 5 MG TABLET 10 Milligram ORAL AT BEDTIME Qty = 60 No Refills Comments: Last Taken:02/26/18 Time:10PM Gabapentin (Neurontin) 600 MG TABLET 1 Tablet ORAL SEE INSTRUCTIONS Qty = 120 No Refills Instructions: 1 tablet in AM, 1 tablet in afternoon and 2 tablets at bedtime Comments: Last Taken:02/27/18 Time:9AM Studies Pending at Discharge none Copies To: Hakeem Villa
== END 2018-02-27 11:40 | DRG 754 ==
LOC: ERH 14:25 → CP SOUTH 02-20 12:19 → ERHI 02-20 12:19 → ENTRNSPT 02-20 12:38 → EDTRNSPT 02-20 12:45 → EDTRNSPTSTS 02-20 12:45 → CP SOUTH 02-20 12:57 → CMPTRNSPT 02-20 13:02 → CP SOUTH 02-21 08:51
PROVIDERS: Student in an Organized Health Care Education/Training Program
DX: F32.9 Major depressive disorder, single episode, unspecified (principal); F10.10 Alcohol abuse, uncomplicated
CPT/HCPCS: 36415; 80307; 93005; 93010; G0480; J3490